=== PATIENT | female | born 1965 | race Caucasian/White ===

== ENCOUNTER 2017-06-22 15:20 | Emergency (ER) | payer OTHER ==
[2017-06-22 16:17] VITALS: BP 123/84; PULSE 72; TEMP 97.9; BMI 31.2
--- NOTE | 2017-06-22 16:33 | PDOC ---
History of Present Illness - General History Source: Patient Exam Limitations: No Limitations - History of Present Illness Initial Comments: 06/22/17 16:35 The patient is a 51 year old female of diverticulitis who presents to the ED with 3 days of sore throat. Patient reports throat pain that is worsened with swallowing. She also reports generalized body aches and chills associated with present symptoms. Denies fever. Patients daughter recently had similar symptoms , now relieved. Patient reports taking advil at 13:30 earlier today with no relief of present symptoms. Denies recent illness. Denies recent travel. 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 <Chance Simons - Last Filed: 06/22/17 16:35> <Aidee Wild - Last Filed: 06/22/17 18:19> - General Chief Complaint: Sore Throat Stated Complaint: SORE THROAT Time Seen by Provider: 06/22/17 16:22 Past History <Chance Simons - Last Filed: 06/22/17 16:35> - Past Medical History Anemia: No Asthma: No Cancer: No Cardiac Disorders: No CVA: No COPD: No CHF: No Dementia: No Diabetes: No GI Disorders: Yes (DIVERTICULITIS; INTESTINAL METAPLASIA;GERD) Disorders: No HTN: No Hypercholesterolemia: No Kidney Stones: No Liver Disease: No Suicide Attempt (Hx): No Seizures: No Thyroid Disease: No - Surgical History Abdominal Surgery: Yes (COLON RESECTION) Appendectomy: No Cardiac Surgery: No Cholecystectomy: No Lung Surgery: No Neurologic Surgery: No Orthopedic Surgery: No - Reproductive History (#): 3 Para: 2 - Immunization History Immunization Up to Date: No - Psycho/Social/Smoking Cessation Hx Anxiety: No Suicidal Ideation: No Smoking Status: No Smoking History: Never smoked Have you smoked in the past 12 months: No Number of Cigarettes Smoked Daily: 0 Information on smoking cessation initiated: No Hx Alcohol Use: No Drug/Substance Use Hx: No Substance Use Type: None Hx Substance Use Treatment: No <Aidee Wild - Last Filed: 06/22/17 18:19> - Past Medical History Allergies/Adverse Reactions: Allergies Allergy/AdvReac Type Severity Reaction Status Date / Time codeine AdvReac Nausea Verified 06/22/17 16:17 Home Medications: Ambulatory Orders Ibuprofen [Advil -] 600 mg PO QID PRN 08/09/16 Review of Systems - Review of Systems Able to Perform ROS?: Yes Constitutional: Yes: Chills HEENTM: Yes: See HPI, Throat Pain Musculoskeletal: Yes: Other (generalized body aches ) All Other Systems: Reviewed and Negative <Chance Simons - Last Filed: 06/22/17 16:35> *Physical Exam - Vital Signs Last Vital Signs Temp Pulse Resp BP Pulse Ox 97.9 F 72 16 123/84 97 06/22/17 16:08 06/22/17 16:08 06/22/17 16:08 06/22/17 16:08 06/22/17 16:08 - Physical Exam Comments: 06/22/17 16:35 GENERAL: Well-appearing, well-nourished. No apparent distress. HEENT: + mild erythema in the throat, 2+ tonsils, no exudates. Normocephalic, atraumatic. PERRL, EOM intact. Neck supple, no lymph nodes. Do nasal drainage. CARDIOVASCULAR: Normal S1, S2. Regular rate and rhythm. PULMONARY: Clear to auscultation bilaterally. ABDOMEN: Soft, non-distended, non-tender. EXTREMITIES: + warm Normal ROM in all four extremities. No gross deformities. No edema. SKIN: Warm, dry. No rash NEUROLOGICAL: No focal neurological deficits. Normal gait <Chance Simons - Last Filed: 06/22/17 16:35> - Vital Signs Last Vital Signs Temp Pulse Resp BP Pulse Ox 97.9 F 72 16 123/84 97 06/22/17 16:08 06/22/17 16:08 06/22/17 16:08 06/22/17 16:08 06/22/17 16:08 <Aidee Wild - Last Filed: 06/22/17 18:19> Medical Decision Making - Medical Decision Making 06/22/17 16:44 Patient was seen and examined by me with dictation provided by medical conceirge. Patient on exam had erythema to the posterior pharynx. Otherwise negative clinical exam. Patient ordered for rapid strep. Patient took Motrin at 1:30. 06/22/17 18:15 Rapid strep negative. Patient be discharged home with supportive care including Chloraseptic [place], Motrin, and plenty of fluids. <Aidee Wild - Last Filed: 06/22/17 18:19> *DC/Admit/Observation/Transfer - Attestations Scribe Attestion: 06/22/17 16:36 Documentation prepared by Chance Simons, acting as medical center director for Aidee Wild <Chance Simons - Last Filed: 06/22/17 16:35> <Aidee Wild - Last Filed: 06/22/17 18:19> Diagnosis at time of Disposition: Sore throat - Discharge Dispostion Disposition: HOME Condition at time of disposition: Good - Referrals Referrals: Adriane Santoyo MD [Primary Care Provider] - - Patient Instructions Printed Discharge Instructions: Sore Throat Additional Instructions: Please take Motrin or ibuprofen 600 mg every 8 hours for discomfort and inflammation/fever. Please and plenty of fluids. Please eat soft nonabrasive foods for the next few days. If the throat culture comes back positive your receive a phone call home to start antibiotics. - Post Discharge Activity
== END 2017-06-22 18:22 | disposition home or self-care (01) ==
LOC: JERFT 15:20
DX: J02.9 Acute pharyngitis, unspecified (principal)
CPT/HCPCS: 87070; 87430; 99281-25

== ENCOUNTER 2017-08-03 01:25 | Emergency (ER) | payer OTHER ==
[2017-08-03 01:50] VITALS: BP 174/102; PULSE 63; TEMP 97.4; BMI 64.5
[2017-08-03 02:07] LABS: PH,URINE 6.5 (5.0-8.0); URINE APPEARANCE CLEAR; URINE BILIRUBIN NEGATIVE (NEGATIVE); URINE BLOOD 1+ (NEGATIVE); URINE COLOR LT. YELLOW; URINE GLUCOSE (UA) NEGATIVE (NEGATIVE); URINE KETONE NEGATIVE (NEGATIVE); URINE NITRITE NEGATIVE (NEGATIVE); URINE PROTEIN NEGATIVE (NEGATIVE); URINE UROBILINOGEN 0.2 mg/dL (0.2-1.0)
--- NOTE | 2017-08-03 02:37 | PDOC ---
History of Present Illness <Walt Hamlin - Last Filed: 08/03/17 02:58> - General History Source: Patient Exam Limitations: No Limitations - History of Present Illness Initial Comments: 08/03/17 04:23 51 y/o F (LMP: 07/17) with no significant PMHx presents to the ED with worsening dysuria for 5 hours. She denies mal odor of her urine. She has a history of UTIs , and states her last UTI was about a year ago. She denies fever, chills. Denies frequency, hematuria. Denies abdominal pain, NVD, back pain. <Melinda Hernandez - Last Filed: 08/03/17 04:24> - General Chief Complaint: Urinary Problem Stated Complaint: URINARY PROBLEM Time Seen by Provider: 08/03/17 01:56 Past History - Past Medical History Anemia: No Asthma: No Cancer: No Cardiac Disorders: No CVA: No COPD: No CHF: No Dementia: No Diabetes: No GI Disorders: Yes (DIVERTICULITIS; INTESTINAL METAPLASIA;GERD) Disorders: No HTN: No Hypercholesterolemia: No Kidney Stones: No Liver Disease: No Suicide Attempt (Hx): No Seizures: No Thyroid Disease: No - Surgical History Abdominal Surgery: Yes (COLON RESECTION) Appendectomy: No Cardiac Surgery: No Cholecystectomy: No Lung Surgery: No Neurologic Surgery: No Orthopedic Surgery: No - Reproductive History (#): 3 Para: 2 - Immunization History Immunization Up to Date: No - Psycho/Social/Smoking Cessation Hx Anxiety: No Suicidal Ideation: No Smoking Status: No Smoking History: Never smoked Have you smoked in the past 12 months: No Number of Cigarettes Smoked Daily: 0 Hx Alcohol Use: No Drug/Substance Use Hx: No Substance Use Type: None Hx Substance Use Treatment: No <Walt Hamlin - Last Filed: 08/03/17 02:58> <Melinda Hernandez - Last Filed: 08/03/17 04:24> - Past Medical History Allergies/Adverse Reactions: Allergies Allergy/AdvReac Type Severity Reaction Status Date / Time codeine AdvReac Nausea Verified 08/03/17 01:58 Home Medications: Ambulatory Orders Nitrofurantoin Monohyd/M-Cryst [Macrobid -] 100 mg PO BID #10 capsule 08/03/17 Phenazopyridine HCl [Pyridium] 100 mg PO BID #2 tablet 08/03/17 Abd/GI Specific PMHX - Complaint Specific PMHX Colitis: No Diverticulitis: Yes Gall Bladder Disease: No Hepatitis: No <Walt Hamlin - Last Filed: 08/03/17 02:58> Review of Systems - Review of Systems Able to Perform ROS?: Yes Comments:: 08/03/17 04:23 CONSTITUTIONAL: No reported: Fever, Chills, Diaphoresis, Generalized Weakness, Malaise, Loss of Appetite HEENT: No reported: Rhinorrhea, Nasal Congestion, Throat Pain, Throat Swelling, Difficulty Swallowing, Mouth Swelling, Ear Pain, Eye Pain, Visual Changes CARDIOVASCULAR: No reported: Chest Pain, Syncope, Palpitations, Irregular Heart Rate, Lightheadedness, Peripheral Edema RESPIRATORY: No reported: Cough, Shortness of Breath, SOB with Exertion, Orthopnea, Wheezing , Stridor, Hemoptysis GASTROINTESTINAL: No reported: Abdominal pain, Abdominal Distension, Nausea, Vomiting, Diarrhea, Constipation, Melena, Hematochezia GENITOURINARY: (+) Dysuria No reported: Frequency, Urgency, Hesitancy, Flank Pain, Genital Pain MUSCULOSKELETAL: No reported: Myalgia, Arthralgia, Joint Swelling, Back pain, Neck Pain SKIN: No reported: Rash, Itching, Pallor HEMEATOLOGIC/IMMUNOLOGIC: No reported: Easy Bleeding, Easy Bruising, Lymphadenopathy, Frequent infections ENDOCRINE: No reported: Unexplained Weight Gain, Unexplained Weight Loss, Heat Intolerance , Cold Intolerance NEUROLOGIC: No reported: Headache, Focal Weakness, Paresthesias, Vertigo, Lightheadedness, Unsteady Gait, Seizure, Mental Status Changes, Incontinence PSYCHIATRIC: No reported: Anxiety, Depression <Melinda Hernandez - Last Filed: 08/03/17 04:24> *Physical Exam - Vital Signs Last Vital Signs Temp Pulse Resp BP Pulse Ox 97.4 F L 63 18 174/102 99 08/03/17 01:44 08/03/17 01:44 08/03/17 01:44 08/03/17 01:44 08/03/17 01:44 <Walt Hamlin - Last Filed: 08/03/17 02:58> - Vital Signs Last Vital Signs Temp Pulse Resp BP Pulse Ox 97.4 F L 63 18 174/102 99 08/03/17 01:44 08/03/17 01:44 08/03/17 01:44 08/03/17 01:44 08/03/17 01:44 - Physical Exam Comments: 08/03/17 04:24 GENERAL: The patient is awake, alert, and fully oriented, Nontoxic - in no acute distress. HEAD: Normocephalic, atraumatic. EYES: extraocular movements intact, sclera anicteric, conjunctiva clear. ENT: Normal voice, Moist mucous membranes. NECK: Normal range of motion, supple LUNGS: Breath sounds equal, clear to auscultation bilaterally. No wheezes, no rhonchi, no rales. HEART: Regular rate and rhythm, without murmur, rub or gallop. ABDOMEN: Soft, nontender, normoactive bowel sounds. No guarding, no rebound.No CVA tenderness EXTREMITIES: Normal range of motion, no edema. No clubbing or cyanosis. No cords, erythema, or tenderness. NEUROLOGICAL: No facial assymetry, Normal speech, PSYCH: Normal mood, normal affect. SKIN: Warm, Dry, normal turgor <Melinda Hernandez A - Last Filed: 08/03/17 04:24> ED Treatment Course - ADDITIONAL ORDERS Additional order review: Laboratory Results 08/03/17 02:00 Urine Color Lt. yellow Urine Appearance Clear Urine pH 6.5 D Urine Protein Negative Urine Glucose (UA) Negative Urine Ketones Negative Urine Blood 1+ H Urine Nitrite Negative Urine Bilirubin Negative Urine Urobilinogen 0.2 <Boubacar,Walt - Last Filed: 08/03/17 02:58> - ADDITIONAL ORDERS Additional order review: Laboratory Results 08/03/17 02:00 Urine Color Lt. yellow Urine Appearance Clear Urine pH 6.5 D Urine Protein Negative Urine Glucose (UA) Negative Urine Ketones Negative Urine Blood 1+ H Urine Nitrite Negative Urine Bilirubin Negative Urine Urobilinogen 0.2 Urine RBC <1 Urine WBC 13 Ur Epithelial Cells Rare - Medications Given in the ED: ED Medications Discontinued Medications Generic Name Dose Route Start Last Admin Trade Name Freq PRN Reason Stop Dose Admin Nitrofurantoin Macrocrystals 100 mg 08/03/17 03:00 08/03/17 03:04 Macrodantin - PO 100 mg ONCE JOEY Administration Phenazopyridine HCl 100 mg 08/03/17 02:57 08/03/17 03:04 Pyridium - PO 08/03/17 02:58 100 mg ONCE ONE Administration <Melinda Hernandez - Last Filed: 08/03/17 04:24> Medical Decision Making - Medical Decision Making 08/03/17 02:43 51y F no pmhx presents with dysuria x 5 hrs without asociated frequency, foul smelling urine, f/c, back pain oon exam pt wel lappearing no cva tenderness no abd tenderness 08/03/17 02:58 ua returned will tx with macrobid andpyridium pmd fu return precautions were discussed I discussed the physical exam findings, ancillary test results and final diagnoses with the patient. I answered all of the patient's questions. The patient was satisfied with the care received and felt comfortable with the discharge plan and treatment plan. The patient will call their primary care physician within 24 hours to arrange follow-up and will return to the Emergency Department with any new, persistent or worsening symptoms. A portion of this note was documented by scribe services under my direction. I have reviewed the details of the note, within reason, and agree with the documentation with the following case summary and management plan written by me <Walt Hamlin - Last Filed: 08/03/17 02:58> *DC/Admit/Observation/Transfer - Discharge Dispostion Admit: No <Walt Hamlin - Last Filed: 08/03/17 02:58> - Attestations Scribe Attestion: 08/03/17 04:24 Documentation prepared by Melinda Hernandez, acting as medical device sales for Walt Hamlin MD. <Melinda Hernandez - Last Filed: 08/03/17 04:24> Diagnosis at time of Disposition: UTI (urinary tract infection) Qualifiers: Urinary tract infection type: acute cystitis Hematuria presence: with hematuria Qualified Code(s): N30.01 - Acute cystitis with hematuria - Discharge Dispostion Disposition: HOME Condition at time of disposition: Stable - Prescriptions Prescriptions: Nitrofurantoin Monohyd/M-Cryst [Macrobid -] 100 mg PO BID #10 capsule Phenazopyridine HCl [Pyridium] 100 mg PO BID #2 tablet - Referrals Referrals: Adriane Santoyo MD [Primary Care Provider] - - Patient Instructions Printed Discharge Instructions: DI for Urinary Tract Infection (UTI) Additional Instructions: Return to the emergency department immediately with ANY new, persistent or worsening symptoms including worsening abdominal pain, fevers, inability to tolerate oral intake, chest pain, shortness of breath or any other concerns. Stay well hydrated. Take the antibiotics as prescribed You MUST call and follow up with your doctor in 2-3 days for reassessment. Your emergency department visit is not complete without a followup with your doctor for reevaluation. Please make sure your doctor reviews the results of your emergency evaluation. Print Language: DUTCH
[2017-08-03 02:52] LABS: URINE RBC <1 /hpf (0-3); URINE WBC 13 /hpf (3-5)
[2017-08-03] MEDS ORDERED: PHENAZOPYRIDINE HCL 100 MG TABLET (FP) PO ONE (02:57)
[2017-08-03] MEDS ORDERED: NITROFURANTOIN MACROCRYSTAL 50 MG CAPSULE (FP) PO SCH (03:00)
== END 2017-08-03 04:03 | disposition home or self-care (01) ==
LOC: JER 01:25
DX: N30.01 Acute cystitis with hematuria (principal)
CPT/HCPCS: 81003; 81015; 99281-25

== ENCOUNTER → 2017-12-15 | Day surgery (SDC) | payer OTHER ==
--- NOTE | 2017-12-15 18:41 | OP ---
DATE OF OPERATION: 12/15/2017 PREOPERATIVE DIAGNOSIS: Abnormal right mammography. POSTOPERATIVE DIAGNOSIS: Abnormal right mammography. PROCEDURE: Right stereotactic needle biopsy with clips. SURGEON: Cher Longoria MD ANESTHESIA: Local. COMPLICATIONS: None. This was a sterile procedure. INDICATIONS FOR PROCEDURE: Patient presented with screening mammography that noted an area of fine cluster of microcalcifications in the upper outer right breast. Recommendation was a needle biopsy. The procedure was discussed with her including need for a clip. PROCEDURE IN DETAIL: Patient was brought to [facility], laid prone on the [place] table. Using the cranial approach, the calcifications which were very fine within an area of dense tissue, were not as well visualized, but there was one dense calcification which appeared to be in the area that was seen on the prior mammogram. This was targeted. A sterile prep was obtained. A target was chosen. There was a positive stroke margin. Using Betadine and 1% lidocaine, a petite Suros needle was used to take several cores from this area. Cores showed the 2 dense calcifications within them which I do believe is customer care representative of the area. These were sent to Pathology for permanent section. A clip was deployed in the area. Hemostasis was assured with direct pressure. The incision was closed with Steri-Strips. She tolerated the procedure well, then left the breast room in good condition. CHER LONGORIA M.D. [id number]
--- NOTE | 2017-12-17 15:58 | PATH ---
Surgical Pathology Report Patient Name: LUIS AGUIRRE [facility]. Rec. #: [id number] /Age/Gender: 1965 (Age: 52) / F Account: [id number] Location: [facility] Taken: 12/15/2017 Received: 12/15/2017 Reported: 12/17/2017 Physicians: Cher Marion M.D. Specimen(s) Received A: RIGHT BREAST WITH CALCIFICATIONS STEREOTACTIC BIOPSY B: RIGHT BREAST WITHOUT CALCIFICATIONS STEREOTACTIC BIOPSY Clinical History Nonpalpable lesion Mammographic findings: Microcalcification, suspicious Final Diagnosis A. BREAST, RIGHT, WITH CALCIFICATIONS, STEREOTACTIC BIOPSY: BENIGN BREAST TISSUE SHOWING RARE CALCIFICATIONS IN ASSOCIATION WITH BENIGN GLANDULAR PARENCHYMA. B. BREAST, RIGHT, WITHOUT CALCIFICATIONS, STEATOTIC BIOPSY: BENIGN BREAST TISSUE SHOWING RARE CALCIFICATIONS IN ASSOCIATION WITH BENIGN GLANDULAR PARENCHYMA. Electronically Signed Chika Johnson M.D. Gross Description A. Received in formalin labeled "right breast with calcifications," is a 1.3 x 1.1 x 0.2 cm are multiple acbrera-yellow, irregular to cylindrical portions of fibroadipose tissue. The formalin is filtered and the specimen is entirely submitted in one cassette. B. Received in formalin labeled "right breast without calcifications," is a 1.8 x 1.5 x 0.3 cm area in multiple cabrera-yellow, irregular to cylindrical portions of fibroadipose tissue. The formalin is filtered and the specimen is entirely submitted in one cassette. Time to formalin fixation: 5 minutes Total formalin fixation time: Approximately 7 hours. 12/15/2017 saudi12/15/2017
== END | disposition home or self-care (01) ==
LOC: FMAMMOTONE 09:38
PROVIDERS: ATTEND Surgery
PROC: 0HBT3ZX Excision of Right Breast, Percutaneous Approach, Diagnostic (ICD-10-PCS; principal; 2017-12-15)
DX: N64.89 Other specified disorders of breast (principal); R92.8 Other abnormal and inconclusive findings on diagnostic imaging of breast
CPT/HCPCS: 19081; A4648

== ENCOUNTER 2018-04-26 11:38 | Emergency (ER) | payer OTHER ==
[2018-04-26 12:16] VITALS: BP 151/93; PULSE 65; TEMP 97.9; BMI 32.2
[2018-04-26 12:50] LABS: URINE APPEARANCE CLEAR; URINE BILIRUBIN NEGATIVE (<2.0 mg/dL); URINE BLOOD 1+ (NEGATIVE); URINE COLOR STRAW; URINE GLUCOSE (UA) NEGATIVE (NEGATIVE); URINE KETONE NEGATIVE (NEGATIVE); URINE LEUK ESTERASE 2+ (NEGATIVE); URINE NITRITE NEGATIVE (NEGATIVE); URINE PROTEIN NEGATIVE (NEGATIVE); URINE UROBILINOGEN NEGATIVE mg/dL (0.2-1.0)
[2018-04-26 12:53] LABS: HCG,QUALITATIVE URINE NEGATIVE
[2018-04-26 12:56] LABS: EPI CELLS RARE /HPF (FEW)
--- NOTE | 2018-04-26 13:39 | PDOC ---
History of Present Illness - General Chief Complaint: Urinary Problem Stated Complaint: URINARY PROBLEM Time Seen by Provider: 04/26/18 12:34 - History of Present Illness Initial Comments: 52-year-old female with a history of colectomy on omeprazole presents for evaluation of dysuria times one day. She has no other associated symptoms. No fever, chills, night sweats, nausea, vomiting, headache. 04/26/18 13:36 Past History - Past Medical History Allergies/Adverse Reactions: Allergies Allergy/AdvReac Type Severity Reaction Status Date / Time codeine AdvReac Nausea Verified 04/26/18 12:14 Home Medications: Ambulatory Orders Nitrofurantoin Monohyd/M-Cryst [Macrobid -] 100 mg PO BID #14 capsule 04/26/18 Phenazopyridine HCl [Pyridium] 200 mg PO TID #6 tablet 04/26/18 Anemia: No Asthma: No Cancer: No Cardiac Disorders: No CVA: No COPD: No CHF: No Dementia: No Diabetes: No GI Disorders: Yes (DIVERTICULITIS; INTESTINAL METAPLASIA;GERD) Disorders: No HTN: No Hypercholesterolemia: No Kidney Stones: No Liver Disease: No Seizures: No Thyroid Disease: No - Surgical History Abdominal Surgery: Yes (COLON RESECTION) Appendectomy: No Cardiac Surgery: No Cholecystectomy: No Lung Surgery: No Neurologic Surgery: No Orthopedic Surgery: No - Reproductive History (#): 3 Para: 2 - Immunization History Immunization Up to Date: No - Suicide/Smoking/Psychosocial Hx Smoking Status: No Smoking History: Never smoked Have you smoked in the past 12 months: No Number of Cigarettes Smoked Daily: 0 Hx Alcohol Use: No Drug/Substance Use Hx: No Substance Use Type: None Hx Substance Use Treatment: No Review of Systems - Review of Systems : Yes: See HPI, Burning, Dysuria All Other Systems: Reviewed and Negative *Physical Exam - Vital Signs Last Vital Signs Temp Pulse Resp BP Pulse Ox 97.9 F 65 18 151/93 99 04/26/18 12:15 04/26/18 12:15 04/26/18 12:15 04/26/18 12:15 04/26/18 12:15 - Physical Exam Comments: GENERAL: The patient is awake, alert, and fully oriented, in no acute distress. HEAD: Normal with no signs of trauma. EYES: Pupils equal, round and reactive to light, extraocular movements intact, sclera anicteric, conjunctiva clear. EXTREMITIES: Normal range of motion, NEUROLOGICAL: Cranial nerves II through XII grossly intact. Normal speech, normal gait. PSYCH: Normal mood, normal affect. SKIN: Warm, no rashes or lesions noted. 04/26/18 13:37 ED Treatment Course - ADDITIONAL ORDERS Additional order review: Laboratory Results 04/26/18 12:40 Urine Color Straw Urine Appearance Clear Urine pH 7.0 Ur Specific [place] 1.005 Urine Protein Negative Urine Glucose (UA) Negative Urine Ketones Negative Urine Blood 1+ H Urine Nitrite Negative Urine Bilirubin Negative Urine Urobilinogen Negative Ur Leukocyte Esterase 2+ H Urine WBC (Auto) 34 Urine RBC (Auto) None Ur Epithelial Cells Rare Urine HCG, Qual Negative Medical Decision Making - Medical Decision Making Treat her with Macrobid and Pyridium culture was sent. 04/26/18 13:37 *DC/Admit/Observation/Transfer Diagnosis at time of Disposition: UTI (urinary tract infection) - Discharge Dispostion Disposition: HOME Condition at time of disposition: Stable Decision to Admit order: No - Prescriptions Prescriptions: Nitrofurantoin Monohyd/M-Cryst [Macrobid -] 100 mg PO BID #14 capsule Phenazopyridine HCl [Pyridium] 200 mg PO TID #6 tablet - Referrals Referrals: Omar Grover MD [Staff Physician] - - Patient Instructions Printed Discharge Instructions: Urinary Tract Infection Additional Instructions: Return to the emergency room if her symptoms worsen or go unresolved. Take all the antibiotics as prescribed. The medication for pain for urinary symptoms is only for 2 days. I recommended a primary care physician for you to follow-up with. - Post Discharge Activity
== END 2018-04-26 13:41 | disposition home or self-care (01) ==
LOC: JERFT 11:38
DX: N39.0 Urinary tract infection, site not specified (principal); Z87.19 Personal history of other diseases of the digestive system; Z90.49 Acquired absence of other specified parts of digestive tract
CPT/HCPCS: 81003; 81015; 84703; 87086; 99281-25

== ENCOUNTER 2018-06-10 07:04 | Day surgery (SDC) | payer OTHER ==
[2018-06-09 09:11] VITALS: BMI 30.4
[2018-06-10] MEDS ORDERED: LIDOCAINE HCL 2% (20ML MULTI-DOSE VIAL) NR ONE (11:20)
[2018-06-10] MEDS ORDERED: LIDOCAINE HCL 1%, 10 MG/ML (20ML VIAL) ONE (11:20)
[2018-06-10] MEDS ORDERED: ceFAZolin SODIUM 1 GM VIAL ONE (11:39)
[2018-06-10] MEDS ORDERED: DEXAMETHASONE SOD PHOSPHATE 4 MG/1 ML VIAL ONE (11:39)
[2018-06-10] MEDS ORDERED: KETOROLAC TROMETHAMINE 30 MG/1 ML VIAL ONE (11:39)
[2018-06-10] MEDS ORDERED: MIDAZOLAM HCL 2 MG/2 ML SINGLE DOSE VIAL ONE ×3 (11:40→12:06)
[2018-06-10] MEDS ORDERED: ceFAZolin SODIUM 1 GM VIAL IVPB ONE (11:48)
[2018-06-10] MEDS ORDERED: LIDOCAINE HCL 1%, 10 MG/ML (50 mL VIAL) INF ONE (11:52)
[2018-06-10] MEDS ORDERED: LIDOCAINE HCL 1%, 10 MG/ML (50 mL VIAL) IJ ONE (11:52)
[2018-06-10] MEDS ORDERED: ONDANSETRON 4 MG/2 ML VIAL IVPUSH PRN (12:47)
[2018-06-10] MEDS ORDERED: PROMETHAZINE HCL 25 MG/1 ML VIAL IVPB PRN (12:47)
--- NOTE | 2018-06-10 13:47 | OP ---
DATE OF OPERATION: 06/10/2018 PREOPERATIVE DIAGNOSIS: Abnormal right mammography. POSTOPERATIVE DIAGNOSIS: Abnormal right mammography. PROCEDURE: Right wire-localized excision of microcalcifications. SURGEON: Cher Longoria MD ANESTHESIA: Local IV sedation. ESTIMATED BLOOD LOSS: Minimal. COMPLICATIONS: None. DISPOSITION: Stable. This was a sterile procedure. INDICATIONS FOR PROCEDURE: Patient presented with a screening mammography that noted increasing microcalcifications in the upper outer quadrant right breast, and the recommendation was a biopsy. The procedure was discussed with them. I am unable to do this stereotactically as I tried a few months ago. Therefore, my recommendation was a wire-localized excision. The procedure was discussed with all the questions answered. PROCEDURE IN DETAIL: Patient was brought to [facility] in [place], taken down to breast imaging where wire was used to localize the calcifications in the upper outer right breast. She was then brought up into the operating room, and after IV sedation and IV antibiotics, the right breast was prepped in the usual sterile fashion. The area in the upper outer right breast was anesthetized with 1% lidocaine without epinephrine. A curvilinear incision was made in the upper right breast, and a wire was used as a guide to get down to the area of interest. This was excised en bloc, and a specimen radiograph was performed. The specimen radiograph showed the clip and wire, showed the wire to be intact within the specimen, and the microcalcifications to be right at the hook. This was then sent to pathology for permanent section. Hemostasis was assured with electrocautery. The parenchyma approximated with interrupted 2-0 Vicryl. Skin approximated with interrupted 3-0 Vicryl, running 4-0 Prolene. Sterile dressing with Tegaderm 4x4 was applied. She tolerated the procedure well, was taken to recovery in good condition. CHER LONGORIA M.D. [id number]
[2018-06-10 14:29] VITALS: TEMP 97.9
[2018-06-10 15:35] VITALS: BP 105/58; PULSE 87
[2018-06-11] MEDS ORDERED: PANTOPRAZOLE 20 MG TABLET (FP) PO SCH (10:00)
--- NOTE | 2018-06-14 17:30 | PATH ---
Surgical Pathology Report Patient Name: ADINA AGUIRRE [facility]. Rec. #: [id number] /Age/Gender: 1965 (Age: 52) / F Account: [id number] Location: AMBULATORY SURG Taken: 06/10/2018 Received: 06/10/2018 Reported: 06/14/2018 Physicians: Cher Marion M.D. Specimen(s) Received RIGHT BREAST EXCISIONAL BIOPSY Clinical History Mammographic findings: Microcalcification, suspicious Final Diagnosis BREAST, RIGHT, EXCISION: BENIGN BREAST TISSUE WITH PROLIFERATIVE FIBROCYSTIC TO FIBROADENOMATOID CHANGES INCLUDING STROMAL FIBROSIS, MICROCYSTS, APOCRINE METAPLASIA, COLUMNAR CELL CHANGE, USUAL DUCTAL HYPERPLASIA, AND ASSOCIATED MICROCALCIFICATIONS. Electronically Signed Adina Padilla M.D. Gross Description Received fresh on an AccuGrid labeled "right breast excisional biopsy," is a 6.2 x 4.5 x 1.6 cm unoriented portion of fibroadipose tissue with a needle localization wire present. There is no skin or nipple present. The specimen is inked blue and serially sectioned. Sectioning reveals abundant dense white fibrous tissue. No definitive masses are identified. The fibrous tissue is entirely and sequentially submitted in 17 cassettes (one bisected section each in cassettes 2/3, /, 04/28, 06/30, 09/01, 11/03, ). Total formalin fixation time: Approximately 7 hours DL/06/10/2018 saudi/06/10/2018
== END 2018-06-10 15:35 | disposition home or self-care (01) ==
LOC: JASUSAT 07:04
PROVIDERS: ATTEND Surgery
PROC: 0HBT0ZX Excision of Right Breast, Open Approach, Diagnostic (ICD-10-PCS; principal; 2018-06-10 10:00)
DX: N60.11 Diffuse cystic mastopathy of right breast (principal)
CPT/HCPCS: 19281; 84703; 88307-TC; 94760

== ENCOUNTER 2018-09-12 09:45 | Emergency (ER) | payer OTHER ==
[2018-09-12 09:55] VITALS: BP 157/91; PULSE 82; TEMP 99.3; BMI 31.0
--- NOTE | 2018-09-12 11:03 | PDOC ---
History of Present Illness - General Chief Complaint: Sore Throat Stated Complaint: SORE THROAT Time Seen by Provider: 09/12/18 10:25 History Source: Patient Exam Limitations: No Limitations - History of Present Illness Initial Comments: 09/12/18 11:27 Patient is a 53-year-old female who presents to emergency department for 2 days of sore throat and fevers. Patient states she woke up yesterday with a scratchy throat. Admits to subjective fevers but did not take her temperature. Admits that it is painful to swallow. Denies cough, congestion, shortness of breath, nausea, vomiting and diarrhea. Past History - Travel Traveled outside of the country in the last 30 days: No Close contact w/someone who was outside of country & ill: No - Past Medical History Allergies/Adverse Reactions: Allergies Allergy/AdvReac Type Severity Reaction Status Date / Time codeine AdvReac Nausea Verified 09/12/18 09:52 Home Medications: Ambulatory Orders Omeprazole 20 mg PO DAILY 06/09/18 Amoxicillin - [Amoxicillin 500mg Capsule -] 500 mg PO BID #14 capsule 09/12/18 Ibuprofen 800 mg PO TID #30 tablet 09/12/18 Ibuprofen [Advil -] 400 mg PO ONCE 09/12/18 Anemia: No Asthma: No Cancer: No Cardiac Disorders: No CVA: No COPD: No CHF: No Dementia: No Diabetes: No GI Disorders: Yes (DIVERTICULITIS; INTESTINAL METAPLASIA;GERD) Disorders: No HTN: No Hypercholesterolemia: No Kidney Stones: No Liver Disease: No Seizures: No Thyroid Disease: No - Surgical History Abdominal Surgery: Yes (COLON RESECTION) Appendectomy: No Cardiac Surgery: No Cholecystectomy: No Lung Surgery: No Neurologic Surgery: No Orthopedic Surgery: No - Reproductive History (#): 3 Para: 2 - Immunization History Immunization Up to Date: No - Suicide/Smoking/Psychosocial Hx Smoking Status: No Smoking History: Never smoked Have you smoked in the past 12 months: No Number of Cigarettes Smoked Daily: 0 Hx Alcohol Use: No Drug/Substance Use Hx: No Substance Use Type: None Hx Substance Use Treatment: No Review of Systems - Review of Systems Able to Perform ROS?: Yes Comments:: 09/12/18 11:26 CONSTITUTIONAL: Present: fever, chills Absent: diaphoresis, generalized weakness, malaise, loss of appetite HEENT: Present: sore throat Absent: rhinorrhea, nasal congestion, throat swelling, difficulty swallowing, mouth swelling, ear pain, eye pain, visual Changes CARDIOVASCULAR: Absent: chest pain, loss of consciousness, palpitations, irregular heart rate, peripheral edema RESPIRATORY: Absent: cough, shortness of breath, dyspnea with exertion, orthopnea, wheezing, stridor, hemoptysis GASTROINTESTINAL: Absent: abdominal pain, abdominal distension, nausea, vomiting, diarrhea, constipation, melena, hematochezia GENITOURINARY: Absent: dysuria, frequency, urgency, hesitancy, hematuria, flank pain, genital pain MUSCULOSKELETAL: Absent: myalgia, arthralgia, joint swelling SKIN: Absent: rash, itching, pallor HEMATOLOGIC/IMMUNOLOGIC: Absent: easy bleeding, easy bruising, lymphadenopathy, frequent infections ENDOCRINE: Absent: unexplained weight gain, unexplained weight loss, heat intolerance, cold intolerance NEUROLOGIC: Absent: headache, focal weakness or paresthesias, dizziness, unsteady gait, seizure, mental status changes, bladder or bowel incontinence PSYCHIATRIC: Absent: anxiety, depression, suicidal or homicidal ideation, hallucinations. Is the patient limited Kazakh proficient: No *Physical Exam - Vital Signs Last Vital Signs Temp Pulse Resp BP Pulse Ox 99.3 F 82 18 157/91 100 09/12/18 09:54 09/12/18 09:54 09/12/18 09:54 09/12/18 09:54 09/12/18 09:54 - Physical Exam Comments: 09/12/18 11:27 GENERAL: Well developed, well nourished. Awake and alert. No acute distress. HEENT: Normocephalic, atraumatic. PERRLA, EOMI. No conjunctival pallor. Sclera are non- icteric. Moist mucous membranes. Oropharynx is with exudates to tonsils b/l. 2+ tonsils with no uvular deviation. (+)halitosis NECK: Supple. Full ROM. No JVD. Carotid pulses 2+ and symmetric, without bruits. No thyromegaly. No lymphadenopathy. CARDIOVASCULAR: Regular rate and rhythm. No murmurs, rubs, or gallops. Distal pulses are 2+ and symmetric. PULMONARY: No evidence of respiratory distress. Lungs clear to auscultation bilaterally. No wheezing, rales or rhonchi. SKIN: Warm and dry. Normal capillary refill. No rashes. No jaundice. NEUROLOGICAL: Alert, awake, appropriate. Cranial nerves 2-12 intact. No deficits to light touch and temperature in face, upper extremities and lower extremities. No motor deficits in the in face, upper extremities and lower extremities. Normoreflexic in the upper and lower extremities. Normal speech. Toes are down- going bilaterally. Gait is normal without ataxia. PSYCHIATRIC: Cooperative. Good eye contact. Appropriate mood and affect. 09/12/18 11:30 Medical Decision Making - Medical Decision Making 09/12/18 11:28 Patient is a 53-year-old female who presents to emergency department for 2 days of sore throat and fevers. -On exam tonsils with exudate, 2+ without uvular deviation -Rapid strep positive. -Treat with amoxicillin -DC home -I discussed the physical exam findings, ancillary test results and final diagnoses with the patient. I answered all of the patient's questions. The patient was satisfied with the care received and felt comfortable with the discharge plan and treatment plan. The Patient agrees to follow up with the primary care physician/specialist within 24-72 hours. Return precautions were given. *DC/Admit/Observation/Transfer Diagnosis at time of Disposition: Strep throat - Discharge Dispostion Disposition: HOME Condition at time of disposition: Stable Decision to Admit order: No - Referrals Referrals: Marco Antonio Quinteros MD [Primary Care Provider] - - Patient Instructions Printed Discharge Instructions: DI for Strep Throat Additional Instructions: You have strep throat. This is a bacterial infection. Please take the amoxicillin 500 mg twice a day for one week. Please finish the prescription even if you feel better. You may take Motrin 800 mg every 8 hours as needed for pain or fever. Warm water gargles and cough drops and just may also help her symptoms. Please throw way your toothbrush 3 days into treatment to prevent reinfection. Please follow up with your primary care doctor next week. Return to emergency department if you have worsening pain, difficulty swallowing , changes in your voice, lightheadedness, dizziness, or any changes in your symptoms. - Post Discharge Activity Forms/Work/School Notes: Back to Work
[2018-09-12] MEDS ORDERED: IBUPROFEN 400 MG TABLET (FP) PO ONE (11:13)
== END 2018-09-12 11:32 | disposition home or self-care (01) ==
LOC: JERFT 09:45
DX: J02.0 Streptococcal pharyngitis (principal); B95.0 Streptococcus, group A, as the cause of diseases classified elsewhere; Z87.19 Personal history of other diseases of the digestive system
CPT/HCPCS: 87070; 87077; 87430; 99281-25

== ENCOUNTER 2022-10-02 19:22 | Emergency (ER) | payer OTHER ==
[2022-10-02 19:38] VITALS: BP 167/69; PULSE 80; RESP 20; TEMP 98; BMI 42.5
[2022-10-02] MEDS ORDERED: LIDOCAINE 5% TOPICAL PATCH TP ONE (20:20)
[2022-10-02] MEDS ORDERED: diazePAM 2 MG TABLET PO ONE (20:20)
[2022-10-02] MEDS ORDERED: KETOROLAC TROMETHAMINE 15 MG/ML VIAL IM ONE (20:20)
[2022-10-02] MEDS ORDERED: KETOROLAC TROMETHAMINE 15 MG/ML VIAL ONE (20:25)
[2022-10-02] MEDS ORDERED: LIDOCAINE 5% TOPICAL PATCH ONE (20:25)
[2022-10-02] MEDS ORDERED: diazePAM 2 MG TABLET ONE (20:25)
[2022-10-02] MEDS ORDERED: LIDOCAINE PATCH REMOVAL MC SCH (22:00)
== END 2022-10-02 21:49 | disposition home or self-care (01) ==
LOC: JERFT 19:22
PROC: 3E0233Z Introduction of Anti-inflammatory into Muscle, Percutaneous Approach (ICD-10-PCS; principal; 2022-10-02)
DX: M54.9 Dorsalgia, unspecified (principal)
CPT/HCPCS: 99283-25